=== PATIENT | male | born 2005 | race Caucasian/White ===

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

== ENCOUNTER 2023-03-23 19:01 | Emergency (ER) | payer BC ==
[2023-03-23 21:13] LABS: CORONAVIRUS COVID-19 NAA NEGATIVE (NEGATIVE); INFLUENZA A NAA NEGATIVE (NEGATIVE); INFLUENZA B NAA NEGATIVE (NEGATIVE)
[2023-03-23] MEDS ORDERED: Ibuprofen 600 MG Tab PO ONE (21:33)
[2023-03-23] MEDS ORDERED: Azithromycin 250 MG Tab PO ONE (21:33)
[2023-03-23 21:42] VITALS: BP 107/51; PULSE 70
== END 2023-03-23 21:45 | disposition home or self-care (01) ==
LOC: MW.ED 19:01
DX: J02.9 Acute pharyngitis, unspecified (principal); Z91.010 Allergy to peanuts; Z20.822 Contact with and (suspected) exposure to COVID-19
CPT/HCPCS: 0240U; 87651; 99283; A9270

== ENCOUNTER 2023-04-20 14:22 | Emergency (ER) | payer BC | END 2023-04-20 14:47 | disposition left against medical advice (07) | LOC: MW.ED 14:22 | DX: Z53.21 Procedure and treatment not carried out due to patient leaving prior to being seen by health care provider (principal) ==

== ENCOUNTER 2023-12-31 13:17 | Emergency (ER) | payer BC ==
[2023-12-31] MEDS: Ketorolac 30 MG/ML SDV IM ONE (13:53)
[2023-12-31] MEDS: Dexamethasone 4 MG Tab PO ONE (13:53)
[2023-12-31] MEDS: Orphenadrine 60 MG/2 ML Inj IM ONE (13:53)
[2023-12-31] MEDS: Acetaminophen 500 MG Tab PO ONE (13:54)
[2023-12-31] MEDS: Lidocaine 4% 1 each Patch TOP ONE (13:55)
[2023-12-31] MEDS ORDERED: tiZANidine 4 MG Tab PO ONE (14:13)
[2023-12-31] MEDS: tiZANidine 4 MG Tab PO ONE (15:09)
[2023-12-31] MEDS: Ibuprofen 600 MG Tab PO ONE (15:09)
[2023-12-31 16:01] VITALS: BP 116/60; PULSE 74
== END 2023-12-31 16:30 | disposition home or self-care (01) ==
LOC: MW.ED 13:17
DX: S39.012A Strain of muscle, fascia and tendon of lower back, initial encounter (principal); S29.012A Strain of muscle and tendon of back wall of thorax, initial encounter; J45.909 Unspecified asthma, uncomplicated; Z79.51 Long term (current) use of inhaled steroids; Z79.899 Other long term (current) drug therapy; Z91.010 Allergy to peanuts; Z91.018 Allergy to other foods; X50.1XXA Overexertion from prolonged static or awkward postures, initial encounter; Y99.0 Civilian activity done for income or pay
CPT/HCPCS: 72128; 72131; 99283; A9270; J8540